=== PATIENT | female | born 1975 | race Caucasian/White ===

== ENCOUNTER → 2016-05-28 | Outpatient (CLI) | payer OTHER ==
[~2016-05-28] MED LIST: DIFL150T PO; IRON18TA2 PO; LORA-474 PO; NAPR500 PO
[2016-05-28 12:05] LABS: AUTOMATED NEUTROPHIL # 3.3 TH/MM3 (1.8-7.7); BASOPHIL # 0.1 TH/MM3 (0-0.2); EOSINOPHIL # 0.3 TH/MM3 (0-0.4); EOSINOPHIL % 5.1 % (0.0-4.0); HEMATOCRIT 41.6 % (35.0-46.0); HEMO FLAGS DIFF FINAL; LYMPH % 26.1 % (9.0-44.0); LYMPHOCYTE # 1.5 TH/MM3 (1.0-4.8); MEAN CELL VOLUME 89.9 FL (80.0-100.0); MEAN CORPUSCULAR HEMOGLOBIN 30.2 PG (27.0-34.0); MEAN CORPUSCULAR HGB CONC 33.5 % (32.0-36.0); MONO % 8.2 % (0.0-8.0); NEUT % 59.6 % (16.0-70.0); PLATELET COUNT 348 TH/MM3 (150-450); RED BLOOD COUNT 4.63 MIL/MM3 (4.00-5.30); RED CELL DISTRIBUTION WIDTH 13.4 % (11.6-17.2); WHITE BLOOD COUNT 5.6 TH/MM3 (4.0-11.0)
[2016-05-28 12:10] LABS: BLOOD, URINE NEG (NEG); GLUCOSE,URINE NEG (NEG); KETONE, URINE NEG (NEG); MUCUS URINE FEW /lpf (OCC); NITRITE,URINE NEG (NEG); SQUAMOUS EPITHELIAL CELL URINE 1 /hpf (0-5); URINE COLOR YELLOW (YELLW/STRAW)
[2016-05-28 12:40] LABS: ANION GAP 4 MEQ/L (5-15); BICARBONATE 30.8 MEQ/L (21.0-32.0); BLOOD UREA NITROGEN 8 MG/DL (7-18); CHLORIDE 103 MEQ/L (98-107); GLOMERULAR FILTRATION RATE 111 ML/MIN (>89); GLUCOSE,FASTING 77 MG/DL (74-99); POTASSIUM 4.1 MEQ/L (3.5-5.1); SODIUM (NA) 138 MEQ/L (136-145)
[2016-05-28 13:06] LABS: BHCG SCREEN QUALITATIVE LESS THAN 1 MIU/ML (0-5)
== END ==
LOC: CPRE 11:29
PROVIDERS: ATTEND Obstetrics & Gynecology
DX: Z01.812 Encounter for preprocedural laboratory examination (principal); D25.9 Leiomyoma of uterus, unspecified
CPT/HCPCS: 36415; 80048; 81001; 84703; 85025

== ENCOUNTER 2016-06-05 05:33 | Inpatient (IN) | payer OTHER ==
[~2016-06-05] VITALS: Ht 157.5 cm; Wt 59.6 kg
[~2016-06-05 05:33] MED LIST changes: -DIFL150T PO; -NAPR500 PO
[2016-06-05 05:40] VITALS: BP 108/68; PULSE 84; RESP 16; TEMP 99.7; O2SAT 97
[2016-06-05] MEDS ORDERED: APREPITANT 40 MG CAP PO ONE (06:00)
[2016-06-05] MEDS ORDERED: SODIUM CHLORID 0.9% 500 ML IV SCH (06:15)
[2016-06-05] MEDS ORDERED: INSULIN HUMAN REGULAR 1,000 UNITS/10 ML VIAL SQ PRN (06:15)
[2016-06-05] MEDS ORDERED: METOPROLOL TARTRATE 25 MG TAB PO PRN (06:15)
[2016-06-05] MEDS ORDERED: LACTATED RINGER'S 1000 ML IV SCH (06:15)
[2016-06-05] MEDS ORDERED: BUPIVACAINE HCL PF 0.25% 30 ML VIAL ONE (06:58)
[2016-06-05] MEDS ORDERED: MIDAZOLAM HCL 2 MG/2 ML VIAL ONE (07:49)
[2016-06-05] MEDS ORDERED: ACETAMINOPHEN 1000 MG/100 ML VIAL IV ONE (07:49)
[2016-06-05] MEDS ORDERED: FAMOTIDINE 20 MG/2 ML VIAL ONE (07:49)
[2016-06-05] MEDS ORDERED: DEXAMETHASONE SOD PHOS 4 MG/ML VIAL ONE (07:50)
[2016-06-05] MEDS ORDERED: fentaNYL CITRATE 250 MCG/5 ML AMP ONE ×2 (07:50→12:21)
[2016-06-05] MEDS: ceFAZolin 2 GM PREMIX 50 ML IV SCH ×2 (07:52→07:54)
[2016-06-05] MEDS ORDERED: PROPOFOL 200 MG/20 ML AMP IV ONE (10:57)
[2016-06-05] MEDS ORDERED: ONDANSETRON HCL 4 MG/2 ML VIAL IV PUSH ONE (10:57)
[2016-06-05] MEDS ORDERED: SODIUM CHLOR 0.9% 1000 ML INJ 1,000 ML IV ONE (10:57)
[2016-06-05] MEDS ORDERED: LACTATED RINGER'S 1000 ML INJ 1,000 ML IV ONE (10:57)
[2016-06-05] MEDS ORDERED: NEOSTIGMINE 3 MG/3 ML SYR IV ONE (10:57)
[2016-06-05] MEDS ORDERED: ceFAZolin INJ 1,000 MG VIAL IV ONE (12:00)
[2016-06-05] MEDS ORDERED: ACETAMINOPHEN 325 MG TAB PO PRN (12:15)
[2016-06-05] MEDS ORDERED: ZOLPIDEM TARTRATE 5 MG TAB PO PRN (12:15)
[2016-06-05] MEDS ORDERED: PROMETHAZINE INJ 25 MG/ML VIAL IM PRN (12:15)
[2016-06-05] MEDS ORDERED: diphenhydrAMINE HCL 25 MG CAP PO PRN (12:15)
[2016-06-05] MEDS ORDERED: DOCUSATE SODIUM 100 MG CAP PO PRN (12:15)
[2016-06-05] MEDS ORDERED: SODIUM CHLORIDE 0.9% FLUSH 5 ML FLUSH IVF PRN (12:15)
[2016-06-05] MEDS ORDERED: NALOXONE HCL 0.4 MG/ML AMP IV PRN (12:15)
[2016-06-05] MEDS ORDERED: LORazepam 0.5 MG TAB PO PRN (12:15)
[2016-06-05] MEDS ORDERED: MORPHINE SULFATE 4 MG/ML INJ ONE ×2 (12:21)
[2016-06-05] MEDS: LACTATED RINGER'S 1000 ML INJ 1,000 ML IV SCH ×2 (12:41→19:58)
[2016-06-05] MEDS ORDERED: *morphine SULFATE 8 MG/ML PERIprocedure ONLY ONE (12:44)
[2016-06-05 12:45] VITALS: O2SAT 98
[2016-06-05] MEDS ORDERED: PILL SPLITTER OTHER PRN (12:45)
[2016-06-05] MEDS ORDERED: DO NOT ADM ANY ANTICOAGULANT DRUGS XX PRN (12:45)
[2016-06-05] MEDS: SODIUM CHLORIDE 0.9% FLUSH 5 ML FLUSH IVF SCH (12:50)
[2016-06-05 13:20] VITALS: BP 111/59; PULSE 82; RESP 18; TEMP 98.6
[2016-06-05] MEDS: PCA - TOTAL MG MORPHINE DELIVERED PER SHIFT SCH ×2 (14:00→18:00)
[2016-06-05] MEDS: ACETAMINOPHEN 1000 MG/100 ML VIAL IV SCH ×2 (14:27→19:57)
[2016-06-05] MEDS: MORPHINE SULFATE 30 MG/30 ML PCA IV SCH (14:27)
[2016-06-05] MEDS: ONDANSETRON HCL 4 MG/2 ML VIAL IV PUSH PRN ×2 (14:45→20:57)
[2016-06-05] MEDS: KETOROLAC TROMETHAMINE 30 MG/ML (IVP) VIAL IV PUSH PRN (14:45)
[2016-06-05 16:56] VITALS: BP 110/62; PULSE 102; RESP 18; TEMP 99.4
[2016-06-05 20:00] VITALS: BP 113/68; PULSE 86; RESP 18; TEMP 98.9
[2016-06-06] VITALS: BP 112/67; PULSE 83; RESP 18; TEMP 98.2
[2016-06-06] MEDS: MORPHINE SULFATE 30 MG/30 ML PCA IV SCH ×2 (01:00→07:23)
[2016-06-06] MEDS: KETOROLAC TROMETHAMINE 30 MG/ML (IVP) VIAL IV PUSH PRN ×2 (01:10→10:42)
[2016-06-06] MEDS: ACETAMINOPHEN 1000 MG/100 ML VIAL IV SCH ×2 (01:52→08:32)
[2016-06-06 04:00] VITALS: BP 95/48; PULSE 73; RESP 18; TEMP 97.7
[2016-06-06] MEDS: LACTATED RINGER'S 1000 ML INJ 1,000 ML IV SCH (04:23)
[2016-06-06] MEDS: PCA - TOTAL MG MORPHINE DELIVERED PER SHIFT SCH (05:50)
[2016-06-06 06:08] LABS: AUTOMATED NEUTROPHIL # 6.7 TH/MM3 (1.8-7.7); BASOPHIL % 0.3 % (0.0-2.0); EOSINOPHIL % 0.1 % (0.0-4.0); HEMATOCRIT 34.2 % (35.0-46.0); HEMO FLAGS DIFF FINAL; LYMPH % 15.3 % (9.0-44.0); LYMPHOCYTE # 1.4 TH/MM3 (1.0-4.8); MEAN CELL VOLUME 89.7 FL (80.0-100.0); MEAN CORPUSCULAR HEMOGLOBIN 30.1 PG (27.0-34.0); MEAN CORPUSCULAR HGB CONC 33.6 % (32.0-36.0); MONO % 8.1 % (0.0-8.0); NEUT % 76.2 % (16.0-70.0); PLATELET COUNT 323 TH/MM3 (150-450); RED BLOOD COUNT 3.81 MIL/MM3 (4.00-5.30); RED CELL DISTRIBUTION WIDTH 13.1 % (11.6-17.2); WHITE BLOOD COUNT 8.8 TH/MM3 (4.0-11.0)
[2016-06-06 06:25] LABS: POTASSIUM 3.8 MEQ/L (3.5-5.1)
--- NOTE | 2016-06-06 07:58 | HHI.PR ---
Subjective Remarks Doing well, pain is well controlled, eating well. Objective Vital Signs Vital Signs Date Time Temp Pulse Resp B/P Pulse Ox O2 Delivery O2 Flow Rate FiO2 06/06/16 07:23 16 06/06/16 05:50 18 06/06/16 04:00 97.7 73 18 95/48 06/06/16 01:00 18 06/06/16 00:00 98.2 83 18 112/67 06/05/16 20:00 98.9 86 18 113/68 06/05/16 18:00 18 06/05/16 16:56 99.4 102 18 110/62 06/05/16 15:00 18 06/05/16 14:27 14 06/05/16 14:00 18 06/05/16 13:20 98.6 82 18 111/59 06/05/16 12:45 86 16 125/69 98 Nasal Cannula 2 06/05/16 12:30 93 16 130/70 100 Nasal Cannula 2 06/05/16 12:15 98.4 59 15 122/73 98 Nasal Cannula 2 I/O 06/05/16 06/05/16 06/05/16 06/06/16 06/06/16 06/06/16 07:00 15:00 23:00 07:00 15:00 23:00 Intake Total 1800 ml 800 ml 975 ml Output Total 1150 ml 250 ml 2050 ml Balance 650 ml 550 ml -1075 ml Intake Oral 300 ml 100 ml IV Total 500 ml 875 ml Other 1800 ml Output Urine Total 750 ml 250 ml 2050 ml Estimated Blood Loss 400 ml Result Diagram: 06/06/16 0427 06/06/16 0427 Objective Remarks Chest is clear, regular rate and rhythm. Abdomen is soft and non-distended. dressing is clean and dry. Ext no CCE. A/P Assessment and Plan Post Op Day 1 TLH converted to open, Dr Montiel Doing well Home tomorrow and return to office in two weeks. Melissa Morrow MD Jun 06, 2016 07:58
[2016-06-06 08:00] VITALS: BP 103/52; PULSE 70; RESP 16; TEMP 98.2
[2016-06-06] MEDS: ONDANSETRON HCL 4 MG/2 ML VIAL IV PUSH PRN (08:32)
[2016-06-06] MEDS: SODIUM CHLORIDE 0.9% FLUSH 5 ML FLUSH IVF SCH (10:43)
--- NOTE | 2016-06-06 10:49 | EKG ---
Date Performed: 06/05/2016 Time Performed: 15:30:46 PTAGE: 41 years EKG: Sinus rhythm NORMAL ECG PREVIOUS TRACING : 04/12/2011 17.25 Compared to prior tracing no significant change DOCTOR: Klaus Melton Interpretating Date/Time 06/06/2016 10:47:08
[2016-06-06 12:00] VITALS: BP 106/54; PULSE 74; RESP 18; TEMP 98.4
--- NOTE | 2016-06-06 12:47 | MP ---
cc: JOSE MANUEL MONTIEL,RAFAEL Raya MD DATE OF SURGERY 06/05/2016 PREOPERATIVE DIAGNOSIS Patient with symptomatic uterine fibroids, anemia from chronic bleeding, pelvic pain. PROCEDURE Diagnostic laparoscopy, operative laparoscopy with conversion to open laparotomy, supracervical hysterectomy, right salpingectomy, left salpingo-oophorectomy. SURGEON Jose Manuel Montiel MD ANESTHESIA General with endotracheal intubation ESTIMATED BLOOD LOSS 400 cc DRAINS Cr to gravity OPERATIVE FINDINGS The patient had a large uterus with multiple fibroids. Both ovaries appeared normal. There was no other peritoneal disease. The patient had adhesions involving previous scar from her involving the omentum. This required lysis of adhesions. SPECIMEN Surgical specimen included uterus complete with right fallopian tube and left fallopian tube and ovary. The left ovary and tube were incorporated in the specimen due to extensive traction of the ovary on the infundibular pelvic vessel from the volume of the uterus. INDICATIONS FOR THE PROCEDURE Patient with chronic history of large symptomatic uterine fibroids with heavy menstrual bleeding and anemia. After discussing options with the patient, she consented to lap approach at laparoscopic hysterectomy and asked to have her ovaries left intact if possible. DESCRIPTION OF PROCEDURE The patient was taken to the operating room. Under general anesthesia had an endotracheal tube placed and had normal vital signs throughout. She was carefully positioned in the dorsolithotomy position using Ajith stirrups on the lower extremities. She had sequential's placed for VTE prophylaxis. She had appropriate padding for her arms and lower extremities. Time-out was conducted and agreed by all present in the room the patient was then prepped and draped. Cr was inserted by sterile technique. The cervix was examined by simple bivalve retractor and a V-Care device using a small cuff was used to place into the uterine cavity. The uterine fundus on measurement was in excess of 12 cm. The bimanual exam demonstrated the fundus just above the level of the umbilicus. There is free mobility noted. After completion of the placement of the V-Care device, gloves were changed and the abdomen was examined. Quarter percent plain Marcaine was used to inject all incision sites. The first injection was in the left upper quadrant where a Veress needle was inserted and a small stab wound for insufflation. Adequate insufflation was obtained through that port and then the camera port was placed above the umbilicus approximately 6 cm above the fundus. This was placed under direct vision without complication with immediate entry into the peritoneal cavity. Accessory ports were then placed using 8 mm trocars two on the right and one on the left. The omental adhesion was taken down by a combination of cold and hot scissors used to dissect the omentum away from the anterior abdominal wall. Once this was complete, the patient was in steep Trendelenburg positioning. The [employer] patient cart was side docked, #2 arm on the left #1 and #3 on the right. A vessel sealer and a monopolar grasper was used on the patient's right side and a monopolar scissor was used on the left. Visualization was adequate. The examination of the lower uterine segment anteriorly required the use of a 30 degrees lens. The dissection initiated by identifying the anatomy and vital structures on the right ureter deep in the pelvis and peristalsing normally. The fallopian tube was from its mesentery using the vessel sealer allowing the uterine ovarian pedicle to be skeletonized and ligated. The round ligament was then equally ligated hemostatically and then the peritoneum was opened opening the retroperitoneal space on the patient's right side with good hemostasis. The bladder reflection was taken down anteriorly allowing isolation of the uterine artery and vein on the right side. This was a combination of sharp dissection using the vessel sealer and the monopolar scissors. Attempt at visualization of the contralateral side was limited by the volume of the uterine fundus. Manipulation and traction were unsuccessful in allowing visualization of the left uterine sidewall. The fallopian tube and ovary were not visualized and attempts at manipulation were inadequate on visualization at this point. The decision was to proceed with an open laparotomy. The [employer] patient cart was undocked, trocars were left in, the patient was redraped and a Pfannenstiel incision was made just above the pubic symphysis carrying it through the skin down through the subcutaneous layer to the fascia scoring the fascia in the midline and extending it sharply and the rectus in the midline and identifying the peritoneum and opening the peritoneum sharply. Entry into the abdominal cavity revealed a large uterus. This was manipulated and brought through the incision with some difficulty, but allowed visualization of the pedicles. The right side was hemostatic. Evaluation of the left tube and ovary revealed the ovary was in close proximity to the uterine ovarian pedicle. The infundibular pelvic vessels were extended due to the tension of the large uterus and its volume. This prohibited salvage of the left ovary. The infundibulopelvic vessels were isolated, skeletonized and then doubly clamped with a curved Radha and sutured x2 2-0 Vicryl. This allowed continued dissection of the uterine artery and vein on the left side where the vessels were secured with a curved Bar clamp and sutured x2 with 2-0 Vicryl. Decision was to proceed with a supracervical dissection due to active bleeding and limited visualization. Transection of the uterus at the level of the cardinal ligament was made. Any active bleeding was either cauterized or sutured with an interrupted 2-0 Vicryl suture. The cervical stump was then oversewn with a #1 Vicryl suture in a simple running fashion. Good hemostasis was noted. The pelvis was irrigated. There was no active bleeding. The right ovary was intact and viable. Both ureters were peristalsing normally. Clear urine was draining in the Cr. The bladder was intact. Hemostasis was confirmed. A full count was made and correct and this point the incision was closed, closing the peritoneum with a running suture of 2-0 Monocryl followed by closure of the muscle belly with an interrupted mattress suture of 2-0 Monocryl. The fascia was then closed with 0 Vicryl in a simple running fashion. The subcutaneous layer was closed with a double layer first with a 2-0 Monocryl, followed by a 4-0 Monocryl subcuticular stitch. The remaining laparoscopic trocar sites were sutured with 4-0 Monocryl. The skin of the umbilical port for the camera port above the umbilicus was closed with interrupted 2-0 Vicryl at the fascia and then closing the skin with 4-0 Monocryl. Steri-Strips and Band-Aids were placed over the incisions. Confirmation of hemostasis was again made. A full count was made and correct. The patient was then taken to the recovery room and extubated on room air. MD ORLY Colby/ORQUIDEA /12:14 PM /12:28 PM
[2016-06-06] MEDS: IBUPROFEN 600 MG TAB PO PRN ×2 (13:04→18:57)
[2016-06-06] MEDS: oxyCODONE/ACETAMINOPHEN 5 MG/325 MG TAB PO PRN ×3 (13:04→19:54)
[2016-06-06 19:54] VITALS: BP 106/49; PULSE 77; RESP 18; TEMP 97.6
[2016-06-07 00:02] VITALS: BP 105/52; PULSE 68; RESP 18; TEMP 98.1
[2016-06-07] MEDS: oxyCODONE/ACETAMINOPHEN 5 MG/325 MG TAB PO PRN ×3 (00:02→09:08)
[2016-06-07] MEDS: IBUPROFEN 600 MG TAB PO PRN ×2 (01:10→06:39)
[2016-06-07 04:00] VITALS: BP 110/76; PULSE 68; RESP 18; TEMP 98.2
[2016-06-07 05:52] LABS: HEMATOCRIT 29.2 % (35.0-46.0); REVIEW FLAG FINAL
[2016-06-07 08:30] VITALS: BP 114/57; PULSE 77; RESP 18; TEMP 98.2
--- NOTE | 2016-06-07 08:33 | HHI.PR ---
Subjective Remarks Doing well, pain is well controlled, eating well. Objective Vital Signs Vital Signs Date Time Temp Pulse Resp B/P Pulse Ox O2 Delivery O2 Flow Rate FiO2 06/07/16 04:00 98.2 68 18 110/76 06/07/16 00:02 98.1 68 18 105/52 06/06/16 19:54 97.6 77 18 106/49 06/06/16 12:00 98.4 74 18 106/54 I/O 06/06/16 06/06/16 06/06/16 06/07/16 06/07/16 06/07/16 07:00 15:00 23:00 07:00 15:00 23:00 Intake Total 975 ml Output Total 2050 ml 2200 ml Balance -1075 ml -2200 ml Intake Oral 100 ml IV Total 875 ml Output Urine Total 2050 ml 2200 ml Result Diagram: 06/07/16 0506 06/06/16 0427 Objective Remarks Chest is clear, regular rate and rhythm. Abdomen is soft and non-distended. dressing is clean and dry. Ext no CCE. A/P Assessment and Plan Post Op Day 2 TLH converted to open, stable Doing well ; c/o "yeast" rash in groin. Home today and return to office in one weeks. Jose Manuel Montiel MD Jun 07, 2016 08:32
[2016-06-07] MEDS ORDERED: DIFL150T PO (08:34)
--- NOTE | 2016-06-07 08:35 | HHI.DCPOC ---
Discharge Care Plan Your Health Problems Are: Abdominal pain Fever, temperature>100.4 Nausea and/or vomiting Vaginal bleeding Report Symptoms to Your Doctor -Temperate above 100.5 degrees -Redness, of incision or excessive or foul smelling drainage -Unusual pain or calf pain -Increased vaginal bleeding -Painful or difficulty urinating -Feelings of extreme sadness or anxiety after 2 weeks Goals to Promote Your Health * To prevent worsening of your condition and complications * To maintain your health at the optimal level Directions to Meet Your Goals Take your medications as prescribed Follow your dietary instruction Follow activity as directed Ensure plenty of rest for recovery Drink fluids for hydration Keep your appointments as scheduled Take your immunizations and boosters as scheduled If your symptoms worsen call your PCP, if no PCP go to Urgent Care Center or Emergency Room Smoking is Dangerous to Your Health. Avoid second hand smoke Call the 24-hour crisis hotline for domestic abuse at Jose Manuel Montiel MD Jun 07, 2016 08:35
[2016-06-07 10:41] VITALS: RESP 18
== END 2016-06-07 11:00 | disposition home or self-care (01) | DRG 743 ==
LOC: HSDC 05:33 → H1EA 12:10
PROVIDERS: ADMIT Obstetrics & Gynecology; ATTEND Obstetrics & Gynecology
PROC: 0UT10ZZ Resection of Left Ovary, Open Approach (ICD-10-PCS; 2016-06-05)
PROC: 0DNT4ZZ (ICD-10-PCS; 2016-06-05)
PROC: 0UT90ZZ Resection of Uterus, Open Approach (ICD-10-PCS; principal; 2016-06-05 07:56)
PROC: 0UT70ZZ Resection of Bilateral Fallopian Tubes, Open Approach (ICD-10-PCS; 2016-06-05 07:56)
DX: D25.9 Leiomyoma of uterus, unspecified (principal); B37.2 Candidiasis of skin and nail; D50.0 Iron deficiency anemia secondary to blood loss (chronic); F41.9 Anxiety disorder, unspecified; F17.210 Nicotine dependence, cigarettes, uncomplicated; K66.0 Peritoneal adhesions (postprocedural) (postinfection); Z53.31 Laparoscopic surgical procedure converted to open procedure; N92.0 Excessive and frequent menstruation with regular cycle; R10.2 Pelvic and perineal pain
CPT/HCPCS: 82565; 84132; 85014; 85018; 85025; 86850; 86900; 86901; 88307; 93005; 94150; J0131; J0690; J1100; J1885; J2250; J2270; J2405; J2710; J3010; J7030; J7120; J8501